=== PATIENT | male | born 1960 | race Hispanic/Latino ===

== ENCOUNTER 2023-10-04 00:07 | Emergency (ER) | payer OTHER ==
[~2023-10-04] VITALS: Ht 170.2 cm; Wt 84.4 kg
[~2023-10-04 00:07] MED LIST: AMLODIPINE BESY10 MG PO; ATORVASTATIN CA20 MG PO; CEFUROXIME500 MG PO; FINASTERIDE5 MG PO; FLOMAX0.4 MG PO; HYDRALAZINE HCL25 MG PO; LEVOFLOXACIN250 MG PO; PROSCAR5 MG PO
[2023-10-04 02:09] VITALS: O2SAT 99
[2023-10-04 02:18] LABS: CLARITY,URINE SL CLOUDY (CLEAR); COLOR,URINE YELLOW (YELLOW)
[2023-10-04 02:19] LABS: BILIRUBIN,URINE NEGATIVE (NEGATIVE); GLUCOSE, URINE NEGATIVE (NEGATIVE); KETONES,URINE NEGATIVE (NEGATIVE); LEUKOCYTE ESTERASE ,URINE 1+ (NEGATIVE); NITRITE,URINE NEGATIVE (NEGATIVE); PH,URINE 7 (5 - 7); PROTEIN,URINE DIPSTICK 1+ (NEGATIVE); URINE UROBILINOGEN 0.2 mg/dL (0.2 - 1)
[2023-10-04 02:26] LABS: BACTERIA,URINE MODERATE /HPF; EPITHELIAL CELLS,URINE FEW /LPF
[2023-10-04 02:27] LABS: SPERM,URINE PRESENT; WBC,URINE (MAN) >50 /HPF (0-5)
== END 2023-10-04 02:30 | disposition home or self-care (01) ==
LOC: ER 00:15
DX: Z46.6 Encounter for fitting and adjustment of urinary device (principal); I10 Essential (primary) hypertension; E11.8 Type 2 diabetes mellitus with unspecified complications; E78.5 Hyperlipidemia, unspecified; D64.9 Anemia, unspecified
CPT/HCPCS: 51700; 81001; 87086; 87186; 99282

== ENCOUNTER 2024-05-07 03:09 | Emergency (ER) | payer MEDICARE, OTHER ==
[~2024-05-07] VITALS: Ht 170.2 cm; Wt 90.7 kg
[2024-05-07 03:13] VITALS: TEMP 98.2
[2024-05-07] MEDS: CLONIDINE HCL 0.1 MG TAB PO ONE (03:31)
[2024-05-07 03:45] VITALS: PULSE 82; RESP 17
[2024-05-07 04:02] VITALS: BP 149/86; PULSE 79; RESP 16; O2SAT 100
== END 2024-05-07 04:08 | disposition home or self-care (01) ==
LOC: ER 03:15
DX: I10 Essential (primary) hypertension (principal); E11.9 Type 2 diabetes mellitus without complications; D64.9 Anemia, unspecified; E78.5 Hyperlipidemia, unspecified; R94.31 Abnormal electrocardiogram [ECG] [EKG]
CPT/HCPCS: 93005; 99283

== ENCOUNTER 2024-06-01 07:05 | Inpatient (IN) | payer MEDICARE ==
[2024-05-31 15:58] LABS: BASOPHILS % 0.6 % (0.0-1.0); EOSINOPHILS # (AUTO) 0.1 (0.0-0.4); EOSINOPHILS % 1.3 % (0.0-6.0); HEMOGLOBIN 13.8 g/dL (14.0-18.0); LYMPHOCYTES # (AUTO) 1.6 (1.0-3.2); LYMPHOCYTES % 23.1 % (18.0-39.1); MEAN CORPUSCULAR HEMOGLOBIN 28.5 pg (28-32); MEAN CORPUSCULAR HGB CONC 32.1 g/dL (31-35); MEAN CORPUSCULAR VOLUME 88.8 fL (81-99); MONOCYTES # (AUTO) 0.5 (0.2-0.8); MONOCYTES % 7.7 % (4.4-11.3); NEUTROPHILS # (AUTO) 4.6 (2.1-6.9); NEUTROPHILS % 66.9 % (38.7-80.0); PLATELET COUNT 203 x10e3/uL (140-360); RED BLOOD COUNT 4.84 x10e6/uL (4.3-5.7); RED CELL DISTRIBUTION WIDTH 14.1 % (11.7-14.4); WHITE BLOOD COUNT 6.85 x10e3/uL (4.8-10.8)
[2024-05-31 16:16] LABS: ANION GAP 12.1 mmol/L (8-16); CALCIUM 9.2 mg/dL (8.4-10.2); CREATININE, SERUM 1.55 mg/dL (0.72-1.25); POTASSIUM 4.1 mmol/L (3.5-5.1)
[~2024-06-01] VITALS: Ht 170.2 cm; Wt 89.4 kg
[~2024-06-01 07:05] MED LIST changes: +GLUCOSE BITS1 GM; +IOPAMIDOL 610MG/1ML 300 MG/ML VIAL IV ONE
[2024-06-01] MEDS: GENTAMICIN 80MG/NS 100 ML 200 ML IV ONE (08:12)
[2024-06-01] MEDS: SODIUM CHLORIDE 0.9% 1000ML 1,000 ML ONE (08:16)
[2024-06-01] MEDS: PIPERACILLIN/TAZOBACTAM 3.375 GM VIAL ONE (08:17)
[2024-06-01] MEDS ORDERED: ONDANSETRON HCL INJ 2MG/ML 2ML 2 MG/ML VIAL IV PRN (11:15)
[2024-06-01] MEDS ORDERED: ACETAMINOPHEN 1000 MG/100 ML IV PRN (11:15)
[2024-06-01] MEDS ORDERED: DIPHENHYDRAMINE HCL 25 MG CAP PO PRN (11:15)
[2024-06-01] MEDS ORDERED: ACETAMINOPHEN/CODEINE 300MG - 30MG TAB PO PRN (11:15)
[2024-06-01] MEDS ORDERED: PHENAZOPYRIDINE HCL 100 MG TAB PO PRN (11:15)
[2024-06-01 11:56] LABS: BASOPHILS % 0.2 % (0.0-1.0); EOSINOPHILS % 0.2 % (0.0-6.0); HEMATOCRIT 38.3 % (38.2-49.6); HEMOGLOBIN 12.2 g/dL (14.0-18.0); LYMPHOCYTES # (AUTO) 1.1 (1.0-3.2); LYMPHOCYTES % 5.7 % (18.0-39.1); MEAN CORPUSCULAR HEMOGLOBIN 28.6 pg (28-32); MEAN CORPUSCULAR HGB CONC 31.9 g/dL (31-35); MEAN CORPUSCULAR VOLUME 89.9 fL (81-99); MONOCYTES # (AUTO) 0.3 (0.2-0.8); MONOCYTES % 1.5 % (4.4-11.3); NEUTROPHILS # (AUTO) 17.2 (2.1-6.9); NEUTROPHILS % 91.6 % (38.7-80.0); PLATELET COUNT 181 x10e3/uL (140-360); RED BLOOD COUNT 4.26 x10e6/uL (4.3-5.7); RED CELL DISTRIBUTION WIDTH 14.2 % (11.7-14.4); WHITE BLOOD COUNT 18.73 x10e3/uL (4.8-10.8)
[2024-06-01 12:24] LABS: CALCIUM 7.6 mg/dL (8.4-10.2); CREATININE, SERUM 1.41 mg/dL (0.72-1.25)
[2024-06-01] MEDS ORDERED: EPHEDRINE SULFATE INJ 50 MG/ML VIAL ONE (12:33)
[2024-06-01] MEDS ORDERED: DEXAMETHASONE SOD PHOS INJ 4 MG/ML SDV ONE (12:33)
[2024-06-01] MEDS ORDERED: ACETAMINOPHEN 1000 MG/100 ML IV ONE (12:33)
[2024-06-01] MEDS ORDERED: PROPOFOL IV EMULSION 10 MG/ML 20 ML VIAL ONE (12:33)
[2024-06-01] MEDS ORDERED: ONDANSETRON HCL INJ 2MG/ML 2ML 2 MG/ML VIAL ONE (12:33)
[2024-06-01] MEDS ORDERED: LIDOCAINE HCL 2% LOCAL INJ 5 ML SDV VIAL INJ ONE (12:33)
[2024-06-01] MEDS ORDERED: SEVOFLURANE INHAL SOLN 250 ML PEN BTL ONE (12:33)
[2024-06-01 12:36] VITALS: BP 129/73; PULSE 87; RESP 17; TEMP 97.4; O2SAT 100
[2024-06-01] MEDS ORDERED: FENTANYL CITRATE/PF 100MCG/2 ML INJ ONE (12:44)
[2024-06-01] MEDS ORDERED: MIDAZOLAM HCL 2 MG/2 ML VIAL ONE (12:44)
[2024-06-01] MEDS: FLUCONAZOLE 200 MG/100 ML 100 ML IV SCH (13:04)
[2024-06-01] MEDS: D5.45%NS/KCL 20MEQ 1,000 ML IV SCH (13:05)
[2024-06-01 13:19] VITALS: PULSE 71; RESP 20; O2SAT 99
[2024-06-01 14:51] VITALS: BP 129/73; PULSE 71; RESP 20; TEMP 97.4; O2SAT 99
[2024-06-01 16:48] VITALS: BP_SYST 134; BP_SYST 148; BP_DIAS 58; BP_DIAS 76; PULSE 72; PULSE 96; RESP 18; RESP 19; TEMP 101.3; TEMP 97.6; O2SAT 100; O2SAT 99
[2024-06-01 20:00] VITALS: BP 150/79; PULSE 85; RESP 18; TEMP 97.3; O2SAT 97
[2024-06-01 20:50] VITALS: PULSE 72; RESP 18; O2SAT 98
[2024-06-01] MEDS: FLUCONAZOLE 200 MG/100 ML 100 ML IV ONE (21:25)
[2024-06-02] VITALS (10 sets, daily range): BP systolic 130–154; BP diastolic 72–85; PULSE 69–82; RESP 18–20; TEMP 97.5–98.2; O2SAT 96–100
[2024-06-02 06:10] LABS: BASOPHILS % 0.1 % (0.0-1.0); HEMATOCRIT 39.5 % (38.2-49.6); HEMOGLOBIN 12.4 g/dL (14.0-18.0); LYMPHOCYTES # (AUTO) 0.8 (1.0-3.2); LYMPHOCYTES % 7.5 % (18.0-39.1); MEAN CORPUSCULAR HEMOGLOBIN 28.3 pg (28-32); MEAN CORPUSCULAR HGB CONC 31.4 g/dL (31-35); MEAN CORPUSCULAR VOLUME 90.2 fL (81-99); MONOCYTES # (AUTO) 0.6 (0.2-0.8); NEUTROPHILS % 85.9 % (38.7-80.0); PLATELET COUNT 183 x10e3/uL (140-360); RED BLOOD COUNT 4.38 x10e6/uL (4.3-5.7); RED CELL DISTRIBUTION WIDTH 13.9 % (11.7-14.4); WHITE BLOOD COUNT 10.43 x10e3/uL (4.8-10.8)
[2024-06-02 06:59] LABS: CALCIUM 7.2 mg/dL (8.4-10.2); CREATININE, SERUM 1.53 mg/dL (0.72-1.25)
[2024-06-02 08:53] LABS: POTASSIUM 3.6 mmol/L (3.5-5.1)
[2024-06-02] MEDS ORDERED: HYDRALAZINE HCL 20 MG/ML VIAL IV PRN (09:30)
[2024-06-02] MEDS: KCL 20MEQ/.9 SOD CHL 1,000 ML IV SCH (09:49)
[2024-06-02] MEDS: AMLODIPINE BESYLATE 10 MG TAB PO SCH (10:14)
[2024-06-02 10:27] LABS: ANION GAP 13.6 mmol/L (8-16)
[2024-06-02] MEDS: HYDRALAZINE HCL 25 MG TAB PO SCH (15:55)
[2024-06-02] MEDS: TAMSULOSIN HCL 0.4 MG CAP PO SCH (17:18)
[2024-06-02] MEDS: ATORVASTATIN 20 MG TAB PO SCH (21:11)
[2024-06-03] VITALS (11 sets, daily range): BP systolic 125–151; BP diastolic 68–85; PULSE 76–93; RESP 16–18; TEMP 97.8–99.3; O2SAT 95–100
[2024-06-03 05:53] LABS: EOSINOPHILS % 0.9 % (0.0-6.0); HEMOGLOBIN 12.7 g/dL (14.0-18.0); LYMPHOCYTES % 20.2 % (18.0-39.1); MEAN CORPUSCULAR HEMOGLOBIN 28.4 pg (28-32); MEAN CORPUSCULAR HGB CONC 31.8 g/dL (31-35); MEAN CORPUSCULAR VOLUME 89.5 fL (81-99); NEUTROPHILS % 66.8 % (38.7-80.0); PLATELET COUNT 181 x10e3/uL (140-360); RED BLOOD COUNT 4.47 x10e6/uL (4.3-5.7); RED CELL DISTRIBUTION WIDTH 14.4 % (11.7-14.4); WHITE BLOOD COUNT 7.39 x10e3/uL (4.8-10.8)
[2024-06-03 05:54] LABS: BASOPHILS # (AUTO) 0.1 (0.0-0.1); BASOPHILS % 0.7 % (0.0-1.0); EOSINOPHILS # (AUTO) 0.1 (0.0-0.4); LYMPHOCYTES # (AUTO) 1.5 (1.0-3.2); MONOCYTES # (AUTO) 0.8 (0.2-0.8); NEUTROPHILS # (AUTO) 4.9 (2.1-6.9)
[2024-06-03] MEDS: FINASTERIDE 5 MG TAB PO SCH (08:53)
[2024-06-03 15:05] LABS: ANION GAP 14.8 mmol/L (8-16); CALCIUM 8.5 mg/dL (8.4-10.2); CREATININE, SERUM 1.72 mg/dL (0.72-1.25); POTASSIUM 3.8 mmol/L (3.5-5.1)
[2024-06-03] MEDS: LISINOPRIL 10 MG TAB PO ONE (16:10)
[2024-06-04] VITALS (11 sets, daily range): BP systolic 135–157; BP diastolic 69–92; PULSE 71–96; RESP 18–20; TEMP 98.1–99.3; O2SAT 98–100
[2024-06-04 05:42] LABS: BASOPHILS % 0.5 % (0.0-1.0); EOSINOPHILS # (AUTO) 0.2 (0.0-0.4); EOSINOPHILS % 3.1 % (0.0-6.0); HEMATOCRIT 39.7 % (38.2-49.6); HEMOGLOBIN 12.5 g/dL (14.0-18.0); LYMPHOCYTES # (AUTO) 1.8 (1.0-3.2); MEAN CORPUSCULAR HEMOGLOBIN 28.6 pg (28-32); MEAN CORPUSCULAR HGB CONC 31.5 g/dL (31-35); MEAN CORPUSCULAR VOLUME 90.8 fL (81-99); MONOCYTES # (AUTO) 0.7 (0.2-0.8); MONOCYTES % 10.8 % (4.4-11.3); NEUTROPHILS # (AUTO) 3.8 (2.1-6.9); NEUTROPHILS % 58.3 % (38.7-80.0); PLATELET COUNT 173 x10e3/uL (140-360); RED BLOOD COUNT 4.37 x10e6/uL (4.3-5.7); RED CELL DISTRIBUTION WIDTH 14.4 % (11.7-14.4); WHITE BLOOD COUNT 6.47 x10e3/uL (4.8-10.8)
[2024-06-04 07:28] LABS: CALCIUM 9.2 mg/dL (8.4-10.2); CREATININE, SERUM 1.77 mg/dL (0.72-1.25); POTASSIUM 4.4 mmol/L (3.5-5.1)
[2024-06-04 07:33] LABS: ANION GAP 4.4 mmol/L (8-16)
[2024-06-04] MEDS: LISINOPRIL 10 MG TAB PO SCH ×2 (09:00→16:12)
[2024-06-05] VITALS (10 sets, daily range): BP systolic 124–158; BP diastolic 72–82; PULSE 69–81; RESP 16–19; TEMP 97.9–98.9; O2SAT 96–100
[2024-06-05 06:16] LABS: BASOPHILS # (AUTO) 0.1 (0.0-0.1); BASOPHILS % 0.8 % (0.0-1.0); EOSINOPHILS # (AUTO) 0.3 (0.0-0.4); EOSINOPHILS % 3.9 % (0.0-6.0); HEMATOCRIT 38.3 % (38.2-49.6); HEMOGLOBIN 12.3 g/dL (14.0-18.0); LYMPHOCYTES # (AUTO) 1.5 (1.0-3.2); MEAN CORPUSCULAR HEMOGLOBIN 28.5 pg (28-32); MEAN CORPUSCULAR HGB CONC 32.1 g/dL (31-35); MEAN CORPUSCULAR VOLUME 88.7 fL (81-99); MONOCYTES # (AUTO) 0.6 (0.2-0.8); MONOCYTES % 9.2 % (4.4-11.3); NEUTROPHILS % 61.8 % (38.7-80.0); PLATELET COUNT 180 x10e3/uL (140-360); RED BLOOD COUNT 4.32 x10e6/uL (4.3-5.7); RED CELL DISTRIBUTION WIDTH 14.6 % (11.7-14.4); WHITE BLOOD COUNT 6.42 x10e3/uL (4.8-10.8)
[2024-06-05 06:40] LABS: ANION GAP 11.8 mmol/L (8-16); CALCIUM 8.4 mg/dL (8.4-10.2); CREATININE, SERUM 1.72 mg/dL (0.72-1.25); POTASSIUM 3.8 mmol/L (3.5-5.1)
[2024-06-06] VITALS (10 sets, daily range): BP systolic 122–155; BP diastolic 70–85; PULSE 76–98; RESP 16–18; TEMP 97.9–99.1; O2SAT 98–100
[2024-06-06 06:42] LABS: ANION GAP 12.6 mmol/L (8-16); CALCIUM 9.2 mg/dL (8.4-10.2); CREATININE, SERUM 1.84 mg/dL (0.72-1.25); POTASSIUM 3.6 mmol/L (3.5-5.1)
[2024-06-06] MEDS: LACTATED RINGER'S 1,000 ML INJ SCH (11:32)
[2024-06-07] VITALS (7 sets, daily range): BP systolic 130–143; BP diastolic 66–79; PULSE 73–89; RESP 16–18; TEMP 97.8–99.1; O2SAT 96–100
[2024-06-07 06:22] LABS: CALCIUM 8.7 mg/dL (8.4-10.2); CREATININE, SERUM 1.94 mg/dL (0.72-1.25)
== END 2024-06-07 14:13 | disposition home or self-care (01) | DRG 713 ==
LOC: OR 07:05 → PACU V 11:08 → MED/SURG2 12:10
PROVIDERS: ADMIT Urology; ATTEND Urology
PROC: BT171ZZ Fluoroscopy of Left Ureter using Low Osmolar Contrast (ICD-10-PCS; 2024-06-01)
PROC: BT101ZZ Fluoroscopy of Bladder using Low Osmolar Contrast (ICD-10-PCS; 2024-06-01)
PROC: 0V508ZZ Destruction of Prostate, Via Natural or Artificial Opening Endoscopic (ICD-10-PCS; principal; 2024-06-01 09:01)
PROC: BT161ZZ Fluoroscopy of Right Ureter using Low Osmolar Contrast (ICD-10-PCS; 2024-06-01 09:01)
DX: N40.1 Benign prostatic hyperplasia with lower urinary tract symptoms (principal); E87.20 Acidosis, unspecified; N13.8 Other obstructive and reflux uropathy; I12.9 Hypertensive chronic kidney disease with stage 1 through stage 4 chronic kidney disease, or unspecified chronic kidney disease; N18.32 Chronic kidney disease, stage 3b; R33.8 Other retention of urine; N41.9 Inflammatory disease of prostate, unspecified; R31.0 Gross hematuria; E83.51 Hypocalcemia; E66.9 Obesity, unspecified; Z68.30 Body mass index [BMI] 30.0-30.9, adult; Z87.440 Personal history of urinary (tract) infections
CPT/HCPCS: 36415; 71046; 74420; 80048; 83735; 85025; 87086; 87186; 88305; 94799; C1758; J1100; J1450; J1580; J2001; J2250; J2405; J2543; J7030